=== PATIENT | male | born 2000 | race African-American/Black ===

== ENCOUNTER 2021-03-24 16:25 | Emergency (ER) | payer OTHER ==
[~2021-03-24] VITALS: Ht 182.9 cm; Wt 81.8 kg
[2021-03-24 16:26] VITALS: BP 104/63
== END 2021-03-24 20:00 | disposition left against medical advice (07) ==
LOC: EMS 16:28
DX: N48.21 Abscess of corpus cavernosum and penis (principal); Z53.21 Procedure and treatment not carried out due to patient leaving prior to being seen by health care provider